=== PATIENT | female | born 1965 | race Caucasian/White ===

== ENCOUNTER 2016-07-10 09:09 | Observation (INO) | payer OTHER ==
[2016-07-10 10:03] LABS: % IMMATURE GRANULYOCYTES 0.4 % (0.0-1.1); ABSOLUTE IMMATURE GRANULOCYTES 0.05 10^3/uL (0.00-0.10); ADD DIFF? NO; ADD MORPH? NO; ADD SCAN? NO; ATYPICAL LYMPHOCYTE FLAG 0 (0-99); FRAGMENT RBC FLAG 0 (0-99); HEMATOCRIT 42.3 % (38.0-47.0); HEMOGLOBIN 14.5 g/dL (12.6-16.3); LEFT SHIFT FLG 0 (0-99); LIPEMIA HEMOLYSIS FLAG 90 (0-99); MEAN CELL HEMOGLOBIN 30.9 pg (27.9-34.1); MEAN CELL HEMOGLOBIN CONCENTR. 34.3 g/dL (32.4-36.7); PLATELET CLUMPS FLAG 10 (0-99); PLATELET COUNT 214 10^3/uL (150-400); RED CELL DISTRIBUTION WIDTH 12.5 % (11.5-15.2)
[2016-07-10 10:11] LABS: ANION GAP 11 mEq/L (8-16); CALCIUM 9.7 mg/dL (8.5-10.4); CARBON DIOXIDE 24 mEq/l (22-31); CHLORIDE 105 mEq/L (97-110); GLOMERULAR FILTRATION RATE 58; GLUCOSE 138 mg/dL (70-100); POTASSIUM 3.9 mEq/L (3.5-5.2); SODIUM 140 mEq/L (134-144)
[2016-07-10] MEDS ORDERED: NS 1,000 ML IV ONE (10:35)
[2016-07-10] MEDS ORDERED: fentaNYL 100 MCG/2 ML INJ IVP ONE (10:35)
--- NOTE | 2016-07-10 10:37 | EDPHY ---
H & P Stated Complaint: rlq abd pain since yesterday Source: Patient Exam Limitations: No limitations - Personal History LMP (Females 10-55): Hysterectomy Current Tetanus/Diphtheria Vaccine: Yes - Medical/Surgical History Hx Asthma: No Hx Chronic Respiratory Disease: No Hx Diabetes: No Hx Cardiac Disease: No Hx Renal Disease: No Hx Cirrhosis: No Hx Alcoholism: No Hx HIV/AIDS: No Hx Splenectomy or Spleen Trauma: No Other PMH: utereine fibroids/hysterectomy - Social History Smoking Status: Never smoked Time Seen by Provider: 07/10/16 09:30 HPI/ROS: CHIEF COMPLAINT: abdominal pain HISTORY OF PRESENT ILLNESS: 51-year-old female presents emergency department complaining of right lower quadrant abdominal pain that started yesterday evening. Patient states yesterday morning she felt a tiny twinge of pain in her right lower quadrant, ate breakfast, went on a bike ride, ate dinner then last night around 5:00 p.m. the pain in her right lower quadrant became worse. Patient reports mild nausea, no vomiting. She woke up in the middle of the night with an urge to have a bowel movement, she had several very small bowel movements. Patient denies urinary frequency, urgency or dysuria. She had a hysterectomy in 2007 with oophorectomy as well. REVIEW OF SYSTEMS: A comprehensive 10 point review of systems is otherwise negative aside from elements mentioned in the history of present illness. (Jana Whitley) - Physical Exam Exam: Physical Exam Gen: Alert and Oriented, NAD HEENT: PERRL, moist mucous membranes NECK: no meningismus CV: regular rate and regular rhythm PULM: CTAB, no wheezes ABDOMEN: soft, right lower quadrant tenderness to palpation, positive pain at McBurney's point, positive Rovsing's, guarding in right lower quadrant, BS present BACK: No CVA tenderness NEURO: Neurologically grossly intact EXTREMITIES: normal appearing SKIN: no rash or break in skin on exposed skin PSYCH: answers questions appropriately. (Jana Whitley) Constitutional: Initial Vital Signs Temperature (C) 36.5 C 07/10/16 09:16 Heart Rate 94 07/10/16 09:16 Respiratory Rate 17 07/10/16 09:16 Blood Pressure 112/72 07/10/16 09:16 O2 Sat (%) 96 07/10/16 09:16 O2 Delivery Mode Room Air Allergies/Adverse Reactions: No Known Allergies Allergy (Unverified 07/10/16 09:15) Home Medications: Medication Instructions Recorded Herbals/Supplements -Info Only 1 ea PO DAILY 07/10/16 Multivitamins [Multivitamin (*)] 1 each PO DAILY 07/10/16 Hydrocodone/APAP 5/325 [[place] 1 - 2 tab PO Q4HRS PRN #30 tab 07/11/16 5/325 (*)] Medical Decision Making ED Course/Re-evaluation: IV established, CBC, chemistry panel, urinalysis ordered. Patient has an elevated white blood cell count at 13,000 with a left shift, on exam she is tender right lower quadrant with rebound tenderness and positive Rovsing's. I am concerned about an appendicitis. 1040am-I have consulted the surgeon Dr. Lerma who will come evaluate the patient. 11am- Dr. Lerma at bedside. He is going to take the patient to the operating room for presumed appendicitis. 1 g IV Invanz has been ordered. ( Jana Whitley) Other Provider: The patient was evaluated and managed by the Physician Aircraft Structural Fitter/ Nurse Practitioner. I discussed the patient's presentation and course with the midlevel provider with them and agree with the evaluation. My co-signature indicates that I have reviewed this chart and I agree with the findings and plan of care as documented. I am the secondary supervising physician. (Dee Rivera) - Data Points Laboratory Results: Laboratory Results 07/10/16 09:35 07/10/16 09:35 Medications Given: Discontinued Medications Hydrocodone Bitart/Acetaminophen ([place] 5/325) 1 - 2 tab PO Q4HRS PRN PRN Reason: Pain, Moderate Able to Take PO Stop: 07/20/16 13:40 Last Admin: 07/10/16 21:52 Dose: 2 tab Fentanyl (Sublimaze) 50 mcg IVP EDNOW ONE Stop: 07/10/16 10:36 Last Admin: 07/10/16 11:03 Dose: 50 mcg Sodium Chloride (Ns) 1,000 mls @ 0 mls/hr IV ONCE ONE PRN Reason: Wide Open Stop: 07/10/16 10:36 Last Admin: 07/10/16 11:03 Dose: 1,000 mls Ertapenem 1 gm/ Sodium (Chloride) 100 mls @ 200 mls/hr IV EDNOW ONE PRN Reason: Protocol Stop: 07/10/16 11:38 Last Admin: 07/10/16 11:26 Dose: Not Given Potassium Chloride/Dextrose/Sod Cl (D5w 1/2 Ns W/ 20 Kcl/L) 1,000 mls @ 75 mls/ hr IV CONT [place] Stop: 01/06/17 13:44 Last Admin: 07/11/16 06:23 Dose: 1,000 mls Ibuprofen (Motrin) 600 mg PO Q8HRS [facility] Stop: 01/06/17 13:59 Last Admin: 07/11/16 06:23 Dose: 600 mg Departure - Departure Disposition: To OP Cath/Surgery Clinical Impression: Acute appendicitis Qualifiers: Acute appendicitis type: with localized peritonitis Qualified Code(s): K35.3 - Acute appendicitis with localized peritonitis Condition: Good
[2016-07-10] MEDS ORDERED: ERTAPENEM 1 GM in NS 100 ML IV ONE (11:09)
[2016-07-10 11:11] LABS: COLOR PALE YELLOW; LEUKOCYTE ESTERASE,URINE NEGATIVE (NEGATIVE); NITRITE,URINE NEGATIVE (NEGATIVE)
[2016-07-10] MEDS ORDERED: BUPIVACAINE/EPI 0.25% 30 ML SDV ONE (11:27)
[2016-07-10] MEDS ORDERED: SKIN ADHESIVE (DERMABOND) 1 EACH TP ONE (11:27)
--- NOTE | 2016-07-10 11:27 | GCON ---
CHIEF COMPLAINT: Abdominal pain. HISTORY OF PRESENT ILLNESS: This is an otherwise healthy 51-year-old female, who presents to the em ergency department with approximately 36 hours of abdominal pain. Patient states that the pain bega n yesterday morning and was initially periumbilical in nature and minor. She attributed it to gas. She had breakfast, went on throughout her day. The pain progressed and moved to the right lower qu adrant, which she says currently is 7/10 in intensity with radiation to her back associated with chi lls. She denies nausea, vomiting, and fevers. Last night, she attempted to sleep, but the pain pro gressed. She presented to the emergency department with the above complaints. She states that she did have a small bowel movement this morning. It did not help with the pain. She has no other conc erns at this time. PAST MEDICAL HISTORY: Fibroids. PAST SURGICAL HISTORY: Transvaginal fibroid resection, followed by a laparoscopic total hysterectom y including ovaries and tubes. ALLERGIES: None. CURRENT MEDICATIONS: Multivitamins. REVIEW OF SYSTEMS: A full 10-point review was performed and unless explicitly stated above is other pacheco negative. PHYSICAL EXAM: VITAL SIGNS: Temperature 36.5, blood pressure 112/72, heart rate 94, and she is 96% on room air. GENERAL: She is alert and oriented, in no acute distress. CV: She has a regular ra te and rhythm without any murmurs. LUNGS: Clear to auscultation bilaterally. ABDOMEN: Soft, nond istended. Tender to palpation with rebound tenderness in the right lower quadrant at McBurney point. Previously well-healed surgical scars consistent with surgical history. EXTREMITIES: Warm and we ll perfused. LABS: Leukocytosis to 13,000 with left shift. Chemistry is unremarkable. ASSESSMENT AND PLAN: A a 51-year-old female with likely appendicitis. I discussed my clinical conc arnaldo with the patient, and gave her the option to either proceed with CT scan imaging to definitively rule in or out appendicitis or to proceed to the operating room given her classic history. She wis hed to proceed to the operating room as we both feel she has a fairly high suspicion for having appe ndicitis. I discussed the risks, benefits, and alternatives to surgery. We will plan to proceed to the operating room as time permits. /[id number]/MODL
[2016-07-10] MEDS ORDERED: fentaNYL 100 MCG/2 ML INJ ONE ×2 (11:37→12:30)
[2016-07-10] MEDS ORDERED: ROCURONIUM 50 MG/5 ML VIAL ONE (11:38)
[2016-07-10] MEDS ORDERED: PROPOFOL/EMULSION 500 MG/50 ML BOTTLE IV ONE (11:38)
[2016-07-10] MEDS ORDERED: DEXAMETHASONE 4 MG/ML VIAL ONE ×2 (11:38→11:52)
[2016-07-10] MEDS ORDERED: ONDANSETRON 4 MG/2 ML VIAL ONE (11:52)
[2016-07-10] MEDS ORDERED: KETOROLAC 30 MG/1 ML SDV ONE (12:35)
[2016-07-10] MEDS ORDERED: SUGAMMADEX SODIUM 200 MG/2 ML VIAL IVP ONE (12:41)
[2016-07-10] MEDS ORDERED: SUCCINYLCHOLINE CHLORIDE*ANESTHESIA ONLY*200 MG/10 ML SYR IVP ONE ×2 (12:54)
[2016-07-10] MEDS ORDERED: HYDROCODONE/APAP 5/325 TAB PO PRN (13:41)
[2016-07-10] MEDS ORDERED: HYDROmorphONE/DILAUDID 1 MG/ML SYR IVP PRN (13:41)
--- NOTE | 2016-07-10 13:43 | POSTOPPROG ---
Post Op Note Date of Operation: 07/10/16 Surgeon: Warren Lerma Anesthesiologist: Toni Anesthesia: GET(General Endotracheal) Pre-op Diagnosis: appendicitis Post-op Diagnosis: same Procedure: lap appy Findings: acute, non perforated appendicitis Inf/Abcess present in the surg proc area at time of surgery?: No EBL: Minimal Specimen(s): appendix
[2016-07-10] MEDS ORDERED: HYDROCODONE/APAP 5/325 TAB ONE (13:54)
--- NOTE | 2016-07-10 14:02 | GOP ---
DATE OF OPERATION: 07/10/2016 SURGEON: Warren Lerma MD BUILDING ARCHITECT: None. ANESTHESIA: General endotracheal. ANESTHESIOLOGIST: Dr. Nixon PREOPERATIVE DIAGNOSIS: Appendicitis. POSTOPERATIVE DIAGNOSIS: Appendicitis. PROCEDURE PERFORMED: Laparoscopic appendectomy. FINDINGS: Acute, indurated, nonperforated appendicitis. SPECIMENS: Appendix. ESTIMATED BLOOD LOSS: 5 cc. DESCRIPTION OF PROCEDURE: The patient was greeted in the preoperative suite. Once again, risks, be nefits, and alternatives were discussed. Consent was signed. She was then brought back to the oper ative suite, placed on the OR table in a supine position. After all anesthesia machines, including SCDs, were on and functioning, World Health Organization timeout was performed. General endotrachea l anesthesia was then induced without incident. The patient's abdomen was then widely prepped and d raped in a typical sterile fashion. She did receive antibiotics vocational services specialist to the operating room. I entered the abdomen using the Veress needle in the left upper quadrant and achieved pneumoperitone um to 15 mmHg CO2, which was well tolerated. I entered the abdomen using a 12 mm Visiport and a 0-d egree laparoscope. Once successfully in the abdomen, I placed 2 additional ports, both 5 mm, 1 in t he suprapubic, 1 in the left lower quadrant, both under direct visualization. Once in there, I iden tified the appendix by tracing the taeniae inferiorly. The base of it appeared healthy the remainde r of the appendix appeared indurated consistent with acute, nonperforated appendicitis. I developed a window at the base of the appendix. Using a single fire Endo-MARCE 45 mm blue load, suc cessfully amputated the appendix from the cecal stalk. After this was done, in the same fashion, us ing a white load this time, successfully amputated from the mesoappendix. It was then placed in an EndoCatch bag and removed. The right upper quadrant, right pericolic gutter, and pelvis were then irrigated with warm, normal s matthieu, noting clear effluent in the suction canister. Staple lines were then inspected and noted to be clean, dry, and hemostatic. Local anesthesia was then instilled into all ports, which were then withdrawn under direct visualization. The midline 12 mm port was closed with an interrupted 0 Vicr yl stitch in a [id number] fashion, noting excellent fascial reapproximation. The skin was clos ed with running 4-0 Monocryl, over which Dermabond was placed. Patient was then extubated in the operative suite and taken to the PACU in satisfactory condition. DRAINS: None. COMPLICATIONS: None. COUNTS: All counts were reported as correct x2. /[id number]/MODL
[2016-07-10] MEDS: IBUPROFEN 600 MG TAB PO SCH ×2 (17:52→21:52)
[2016-07-10] MEDS: D5W 1/2 NS W/ 20 KCl/L 1,000 ML IV SCH (17:53)
[2016-07-11] MEDS: D5W 1/2 NS W/ 20 KCl/L 1,000 ML IV SCH (06:23)
[2016-07-11] MEDS: IBUPROFEN 600 MG TAB PO SCH (06:23)
[2016-07-11 07:58] VITALS: BP 98/59; PULSE 70; RESP 18; TEMP 97.7; O2SAT 92
--- NOTE | 2016-07-11 12:01 | GDS ---
DISCHARGE DIAGNOSIS: Nonperforated acute appendicitis. HOSPITAL COURSE: The patient was admitted from the Emergency Department and taken urgently to the o perating room, where she underwent uneventful laparoscopic appendectomy for acute nonperforated appe ndicitis. She tolerated the procedure well with no intraoperative complications. She was subsequen tly transferred to the postanesthesia care unit and then to the general medical floor. Her diet was advanced to a regular diet, which was well tolerated on day of discharge. Her pain was well contro lled on oral narcotics. She was discharged home in stable condition. PHYSICAL EXAM: Examination on day of discharge showed that her abdomen was soft, nondistended, appr opriately tender with incisions clean, dry, and intact. DISPOSITION: She was discharged home uneventfully. DISCHARGE MEDICATIONS: The only new medication was [place] 5/325 one to two every 4-6 as needed for p ain. FOLLOWUP: She will follow up with me in 10-14 days. /[id number]/MODL
== END 2016-07-11 11:08 | disposition home or self-care (01) ==
LOC: INTOOBSV 11:11 → F1N 14:14
PROVIDERS: ADMIT Surgery; ATTEND Surgery
PROC: 0DTJ4ZZ Resection of Appendix, Percutaneous Endoscopic Approach (ICD-10-PCS; principal; 2016-07-10 11:58)
DX: K35.80 Unspecified acute appendicitis (principal)
CPT/HCPCS: 44970; G0378; 96374; J0330; J1100; J1335; J1885; J2405; J2704; J3010